=== PATIENT | male | born 1940 | race Caucasian/White ===

== ENCOUNTER 2016-11-22 09:17 | Emergency (ER) | payer MEDICARE ==
[2016-11-22 09:17] VITALS: BMI 27.4
[2016-11-22 09:24] VITALS: RESP 18; TEMP 98.3; O2SAT 96
[2016-11-22] MEDS ORDERED: Tmp-Smz 800 mg-160 mg DS Tab PO STA (09:46)
[2016-11-22] MEDS ORDERED: Naproxen 550 mg Tab PO STA (09:47)
--- NOTE | 2016-11-22 09:49 | C.PDOC ---
History Of Present Illness 76-year-old male, presents to the emergency department with complaints of right foot redness, pain and swelling, for the past three days. Patient states he was bit by something and symptoms started afterward. Patient denies any Hx of diabetes, falls, injuries, fever, or any other associated symptoms. No other complaints at this time. Time Seen by Provider: 11/22/16 09:28 Chief Complaint (Nursing): Abnormal Skin Integrity History Per: Patient History/Exam Limitations: no limitations Onset/Duration Of Symptoms: Days (3) Current Symptoms Are (Timing): Still Present Past Medical History Reviewed: Historical Data, Nursing Documentation, Vital Signs Vital Signs: Last Vital Signs Temp 98.3 F 11/22/16 09:20 Pulse 99 H 11/22/16 10:08 Resp 18 11/22/16 10:08 BP 135/81 11/22/16 10:08 Pulse Ox 96 11/22/16 10:29 - Medical History PMH: HTN Denies: Chronic Kidney Disease Family History: States: No Known Family Hx - Social History Hx Alcohol Use: No Hx Substance Use: No - Immunization History Hx Tetanus Toxoid Vaccination: No Hx Influenza Vaccination: No Hx Pneumococcal Vaccination: No Review Of Systems Except As Marked, All Systems Reviewed And Found Negative. Constitutional: Negative for: Fever Respiratory: Negative for: Shortness of Breath Musculoskeletal: Positive for: Foot Pain (redness and swelling.) Neurological: Negative for: Weakness, Numbness Physical Exam - Physical Exam Appears: Non-toxic, No Acute Distress Skin: Warm, Dry, No Rash Head: Atraumatic, Normacephalic Nose: Normal Oral Mucosa: Moist Lips: Normal Appearing Neck: Normal ROM Respiratory: No Accessory Muscle Use Extremity: No Pedal Edema, Capillary Refill (<2 seconds), Swelling (3cm area of erythema that is tender to palpation, to dorsum of right foot. No fluctuance or induration. ) Pulses: Left Dorsalis Pedis: Normal, Right Dorsalis Pedis: Normal ED Course And Treatment O2 Sat by Pulse Oximetry: 96 (on RA) Pulse Ox Interpretation: Normal Progress Note: Patient treeated with bactrim, Keflex and Naprosyn, he will be discharged home for outpatient f/u with PMD. asked to return for any new or worsening symptoms. Disposition Counseled Patient/Family Regarding: Studies Performed, Diagnosis, Need For Followup, Rx Given - Disposition Referrals: Demetri Pabon Jr., MD [Medical Doctor] - Disposition: HOME/ ROUTINE Disposition Time: 10:00 Condition: STABLE Additional Instructions: FOLLOW UP WITH YOUR DOCTOR IN 1-2 DAYS USE MEDICATIONS DIRECTED RETURN TO EMERGENCY ROOM IF SYMPTOMS WORSEN Prescriptions: Cephalexin [Keflex] 500 mg PO BID #14 capsule Naproxen 375 mg PO BID PRN #20 tablet PRN Reason: pain Sulfamethoxazole/Trimethoprim [Bactrim DS 800 mg-160 mg] 1 tab PO BID #14 tab Instructions: Cellulitis (ED) Forms: [employer] (Occitan) Print Language: MONGOLIAN - POA Present On Arrival: None - Clinical Impression Clinical Impression: Cellulitis of foot - Scribe Statement The provider has reviewed the documentation as recorded by the Scribe (Gurvinder Hudson) All medical record entries made by the Scribe were at my direction and personally dictated by me. I have reviewed the chart and agree that the record accurately reflects my personal performance of the history, physical exam, medical decision making, and the department course for this patient. I have also personally directed, reviewed, and agree with the discharge instructions and disposition.
[2016-11-22] MEDS ORDERED: Naproxen 550 mg Tab PO ONE (09:51)
[2016-11-22] MEDS ORDERED: Tmp-Smz 800 mg-160 mg DS Tab ONE (09:51)
[2016-11-22 10:08] VITALS: BP 135/81; PULSE 99
== END 2016-11-22 10:08 | disposition home or self-care (01) ==
LOC: C.ER 09:17
DX: L03.115 Cellulitis of right lower limb (principal)

== ENCOUNTER 2016-11-27 11:19 | Inpatient (IN) | payer MEDICARE ==
[2016-11-27 11:43] VITALS: BMI 35.5
[2016-11-27 12:41] LABS: BASO % 0.5 % (0.0-2.0); EOS # 0.3 K/uL (0.0-0.7); HEMATOCRIT 44.3 % (35.0-51.0); LYMPH % 27.4 % (20.0-40.0); MEAN CELL VOLUME 86.2 fL (80.0-94.0); MEAN CORPUSCULAR HEMOGLOBIN 29.3 pg (27.0-31.0); MEAN PLATELET VOLUME 7.5 fL (7.2-11.7); MONO # 0.6 K/uL (0.0-0.8); MONO % 8.3 % (0.0-10.0); RED CELL DISTRIBUTION WIDTH 14.7 % (11.5-14.5); WHITE BLOOD COUNT 7.4 K/uL (4.8-10.8)
[2016-11-27 12:50] LABS: CHLORIDE 104 mmol/L (98-107); SODIUM 138 mmol/L (132-148)
[2016-11-27 12:51] LABS: POTASSIUM 4.2 mmol/L (3.6-5.2)
[2016-11-27 12:53] LABS: ALKALINE PHOSPHATASE 82 U/L (38-126); ALT/SGPT 24 U/L (21-72); AST/SGOT 25 U/L (17-59); BILIRUBIN,TOTAL 0.4 mg/dL (0.2-1.3); BLOOD UREA NITROGEN 16 mg/dL (9-20); CARBON DIOXIDE 25 mmol/L (22-30); GFR AFRICAN-AMERICAN > 60; TOTAL PROTEIN 8.3 g/dL (6.3-8.3)
[2016-11-27 12:54] LABS: CALCIUM 9.3 mg/dl (8.6-10.4); GLUCOSE,RANDOM 82 mg/dL (75-110)
[2016-11-27] MEDS ORDERED: Piperacillin/Tazobact 3.375 GM in Sodium Chloride 100 ML IVPB STA (13:05)
--- NOTE | 2016-11-27 13:28 | C.PDOC ---
History Of Present Illness 76 year old male with PMH HTN and valve replacement in 09/24 presents to ED for evaluation of area of swelling and redness to right foot for the last 9 days. Pt believes it maybe secondary to a bug bite. Notes that he has been taking prescribed antibiotics, but swelling has gotten worse. Notes being evaluated by PMD today who requested him to report to ED for further evaluation. Denies PMHx of diabetes or trauma. Denies fever, change in sensation, or any other associated symptoms at this time. Time Seen by Provider: 11/27/16 12:05 Chief Complaint (Nursing): Abnormal Skin Integrity History Per: Patient History/Exam Limitations: no limitations Onset/Duration Of Symptoms: Days Current Symptoms Are (Timing): Still Present Location Of Injury: Right: Foot Quality Of Symptoms: Swollen Additional History Per: Patient Past Medical History Reviewed: Historical Data, Nursing Documentation, Vital Signs Vital Signs: Last Vital Signs Temp 98.1 F 11/27/16 11:43 Pulse 81 11/27/16 11:43 Resp 20 11/27/16 11:43 BP 150/77 11/27/16 11:43 Pulse Ox 98 11/27/16 13:36 - Medical History PMH: HTN Denies: Chronic Kidney Disease Family History: States: Unknown Family Hx - Social History Hx Alcohol Use: No Hx Substance Use: No - Immunization History Hx Tetanus Toxoid Vaccination: No Hx Influenza Vaccination: No Hx Pneumococcal Vaccination: No Review Of Systems Except As Marked, All Systems Reviewed And Found Negative. Constitutional: Negative for: Fever, Chills Cardiovascular: Negative for: Chest Pain Respiratory: Negative for: Shortness of Breath Musculoskeletal: Positive for: Foot Pain (area of swelling in right foot) Neurological: Negative for: Weakness, Numbness Physical Exam - Physical Exam Appears: Non-toxic, No Acute Distress Skin: Warm, Dry, Other (4cm area of erythema with central scabbing, swelling, and fluctuance) Head: Atraumatic, Normacephalic Eye(s): bilateral: Normal Inspection, EOMI Nose: Normal Oral Mucosa: Moist Neck: Supple Chest: Symmetrical Cardiovascular: Rhythm Regular Respiratory: Normal Breath Sounds, No Accessory Muscle Use Extremity: Normal ROM, No Tenderness, No Calf Tenderness, Capillary Refill ( less than 2 seconds), No Deformity Pulses: Left Dorsalis Pedis: Normal, Right Dorsalis Pedis: Normal Neurological/Psych: Oriented x3, Normal Speech, Normal Motor, Normal Sensation ED Course And Treatment - Laboratory Results Result Diagrams: 11/27/16 12:37 11/27/16 12:37 O2 Sat by Pulse Oximetry: 98 (RA) Pulse Ox Interpretation: Normal Progress Note: Blood work ordered and reviewed. Spoke with Dr. Pabon who agrees upon admisison, and requests Dr. Wilcox for surgical consult. Dr. Pabon also requests to start patient on Vancomycin and Zosyn. Disposition - Disposition Disposition Time: 12:00 Condition: STABLE - Clinical Impression Clinical Impression: Cellulitis of foot
[2016-11-27] MEDS ORDERED: Vancomycin 1 gm/NS 200 ml 1 GM/200 ML BAG IVPB SCH (13:30)
[2016-11-27] MEDS ORDERED: Piperacill/Tazo 3.375gm in Dex 3.375 GM/50 ML BAG IVPB ONE (13:45)
[2016-11-27] MEDS ORDERED: Vancomycin 1 GM 1 GM/250 ML BAG IVPB ONE (13:46)
--- NOTE | 2016-11-27 13:48 | CP.PCM.HP ---
History of Present Illness - History of Present Illness History of Present Illness: PGY-1 H&P for Dr. Pabon CC: "water in my leg" This is a 76 year old male with PMHx HTN and severe aortic insufficiency s/p aortic valve replacement who presents complaining of a right leg abscess that began about 10 days ago after he got an insect bite. Patient states that it began after an insect bite. He denies any trauma to the area or abrasion. Patient states that the lesion itself is the only painful portion. Patient denies pain in the rest of the lower extremity. Patient seen in the ER on and prescribed Keflex 500 mg PO BID and Bactrim DS 1 tab PO BID. The abscess was marked by the ER to keep track of the size and erythema. The erythema has since increased past the line. Patient states that the naproxen that was prescribed on his recent ER visit helps to alleviate the pain a bit. Patient denies fever, chills, nausea, vomiting. Patient denies a history of diabetes or frequent falls. PMHx: HTN, severe aortic insufficiency PSHx: Aortic valve replacement surgery 14 months prior Allergies: NKDA Social: Denies tobacco, alcohol, drugs. Home meds: ASA 325 mg PO daily, Amlodipine/Benzapril 5-40 mg PO daily, Toprol XL 50 mg PO daily. Recently dispensed Keflex 500mg PO BID and Bactrim DS 1 tab PO BID, Naproxen 375 mg PO BID prn pain. PMD: Dr. Pabon Present on Admission - Present on Admission Any Indicators Present on Admission: No Review of Systems - Constitutional Constitutional: absent: Chills, Fever - EENT Eyes: absent: Change in Vision Ears: absent: Decreased Hearing Nose/Mouth/Throat: absent: Nasal Congestion - Cardiovascular Cardiovascular: absent: Chest Pain, Dyspnea, Pedal Edema - Respiratory Respiratory: absent: Cough, Dyspnea, Wheezing - Gastrointestinal Gastrointestinal: absent: Abdominal Pain, Constipation, Diarrhea, Nausea, Vomiting - Genitourinary Genitourinary: absent: Dysuria, Hematuria - Integumentary Integumentary: Lesions (right leg). absent: Pruritus - Neurological Neurological: absent: Dizziness, Numbness, Headaches, Tingling, Weakness - Psychiatric Psychiatric: absent: Anxiety, Depression - Endocrine Endocrine: absent: Fatigue, Palpitations Past Patient History - Past Medical History & Family History Past Medical History?: Yes - Past Social History Smoking Status: Former Smoker - CARDIAC Hx Hypertension: Yes - PULMONARY Hx Respiratory Disorders: No - NEUROLOGICAL Hx Neurological Disorder: No - HEENT Hx HEENT Problems: No - RENAL Hx Chronic Kidney Disease: No - ENDOCRINE/METABOLIC Hx Endocrine Disorders: No - HEMATOLOGICAL/ONCOLOGICAL Hx Blood Transfusions: No - INTEGUMENTARY Hx Dermatological Problems: No - MUSCULOSKELETAL/RHEUMATOLOGICAL Hx Falls: No - GASTROINTESTINAL Hx Gastrointestinal Disorders: No - GENITOURINARY/GYNECOLOGICAL Hx Genitourinary Disorders: No - PSYCHIATRIC Hx Substance Use: No - SURGICAL HISTORY Hx Surgeries: Yes Other/Comment: CARDIAC SX - ANESTHESIA Hx Anesthesia: Yes Hx Anesthesia Reactions: No Hx Malignant Hyperthermia: No Meds Allergies/Adverse Reactions: Allergies Allergy/AdvReac Type Severity Reaction Status Date / Time No Known Allergies Allergy Verified 11/27/16 11:38 Physical Exam - Constitutional Appears: No Acute Distress - Head Exam Head Exam: ATRAUMATIC, NORMOCEPHALIC - Eye Exam Eye Exam: EOMI, PERRL - ENT Exam ENT Exam: Mucous Membranes Moist - Respiratory Exam Respiratory Exam: Clear to Auscultation Bilateral, NORMAL BREATHING PATTERN. absent: Rales, Rhonchi, Wheezes - Cardiovascular Exam Cardiovascular Exam: REGULAR RHYTHM, +S1, +S2 - GI/Abdominal Exam GI & Abdominal Exam: Normal Bowel Sounds, Soft. absent: Tenderness - Extremities Exam Extremities exam: Negative for: calf tenderness, pedal edema Additional comments: Erythema and fluctuating lesion measuring 3cmx 4cm with scab covering much of it. Increased tenderness to palpation over the lesion. Areas of erythema extend further past the line marked by the ED on the 11/22/16 visit. - Neurological Exam Neurological exam: Alert, CN II-XII Intact, Oriented x3 - Psychiatric Exam Psychiatric exam: Normal Affect, Normal Mood - Skin Skin Exam: Dry, Warm Results - Vital Signs Recent Vital Signs: Last Vital Signs Temp 98.1 F 11/27/16 11:43 Pulse 81 11/27/16 11:43 Resp 20 11/27/16 11:43 BP 150/77 11/27/16 11:43 Pulse Ox 98 11/27/16 13:36 - Labs Result Diagrams: 11/27/16 12:37 11/27/16 12:37 Labs: Laboratory Results - last 24 hr 11/27/16 11/27/16 12:37 12:37 WBC 7.4 RBC 5.14 Hgb 15.1 Hct 44.3 MCV 86.2 MCH 29.3 MCHC 34.0 RDW 14.7 H Plt Count 259 MPV 7.5 Neut % (Auto) 59.8 Lymph % (Auto) 27.4 [place] % (Auto) 8.3 Eos % (Auto) 4.0 Baso % (Auto) 0.5 Neut # 4.4 Lymph # 2.0 [place] # 0.6 Eos # 0.3 Baso # 0.0 Sodium 138 Potassium 4.2 Chloride 104 Carbon Dioxide 25 Anion Gap 14 BUN 16 Creatinine 1.0 Est GFR ( Amer) > 60 Est GFR (Non-Af Amer) > 60 Random Glucose 82 Calcium 9.3 Total Bilirubin 0.4 AST 25 ALT 24 Alkaline Phosphatase 82 Total Protein 8.3 Albumin 4.2 Globulin 4.1 H Albumin/Globulin Ratio 1.0 Assessment & Plan - Assessment and Plan (Free Text) Plan: Right leg Abscess In ED, given 1 dose of Vancomycin 1 gm and Zosyn 3.375 gm Continued empiric Vancomycin 1 gm IV daily Continued empiric Zosyn 3.[address] Wilcox surgery consult, help appreciated. Bedside I&D performed 11/27/16 with packing placed. To be changed in the AM. F/u blood cultures F/u wound cultures History of Hypertension Amlodipine 5 mg PO daily Benzapril not on formulary--Lisinopril 20 mg PO daily Toprol XL 50 mg PO daily History of Bioprosthetic Aortic Valve Replacement Due to severe aortic insufficiency See BP meds above Home med ASA 325 mg PO daily Monitor Prophylactic Measures Pepcid 20 mg PO BID Lovenox 40 mg SC daily Heart Healthy Diet f/u Hemoglobin A1C Morning labs Case DW Dr. Cm Plascencia PGY-1
--- NOTE | 2016-11-27 15:44 | CP.PCM.CON ---
History of Present Illness - History of Present Illness History of Present Illness: Surgery Consult Note For Dr. Wilcox CC: R. Ankle abscess HPI: Patient presents to the ED with an abscess on the ventral aspect of his R. ankle that has been present for 10 days. The states that he was bit by something but is not completely sure. He states that pain was worse earlier in the week. He describes the pain as throbbing in nature. Denies any palliative or provocative factors. The pain does not radiate anywhere. The pain has been constant since its onset. No associated symptoms PMH: HTN, severe aortic insufficiency PSH: Aortic valve replacement surgery 14 months prior SH: Denies tobacco, alcohol, drugs. Meds: See Mar Allergies: NKDA Initial Post-operative Note - Surgeon's Notes Surgeon: ricardo Resin Remover: janette Anesthesia Administered By: local Pre-Operative Diagnosis: infected abcess Date of OP: 11/27/16 Procedure: i/d Post-Operative Diagnosis: infected abscess Decription of Operation: I/D Operative Findings: blood and pus Specimen Removed: none Estimated Blood Loss: 1 Review of Systems - Review of Systems All systems: reviewed and no additional remarkable complaints except (per HPI) Past Patient History - Past Medical History & Family History Past Medical History?: Yes - Past Social History Smoking Status: Former Smoker - CARDIAC Hx Hypertension: Yes - PULMONARY Hx Respiratory Disorders: No - NEUROLOGICAL Hx Neurological Disorder: No - HEENT Hx HEENT Problems: No - RENAL Hx Chronic Kidney Disease: No - ENDOCRINE/METABOLIC Hx Endocrine Disorders: No - HEMATOLOGICAL/ONCOLOGICAL Hx Blood Transfusions: No - INTEGUMENTARY Hx Dermatological Problems: No - MUSCULOSKELETAL/RHEUMATOLOGICAL Hx Falls: No - GASTROINTESTINAL Hx Gastrointestinal Disorders: No - GENITOURINARY/GYNECOLOGICAL Hx Genitourinary Disorders: No - PSYCHIATRIC Hx Substance Use: No - SURGICAL HISTORY Hx Surgeries: Yes Other/Comment: CARDIAC SX - ANESTHESIA Hx Anesthesia: Yes Hx Anesthesia Reactions: No Hx Malignant Hyperthermia: No Meds Allergies/Adverse Reactions: Allergies Allergy/AdvReac Type Severity Reaction Status Date / Time No Known Allergies Allergy Verified 11/27/16 11:38 - Medications Medications: Current Medications Amlodipine Besylate (Norvasc) 5 mg PO DAILY [facility] Aspirin (Aspirin) 325 mg PO DAILY [facility] Piperacillin Sod/Tazobactam (Sod 3.375 gm/ Sodium Chloride) 100 mls @ 200 mls/ hr IVPB Q6H [facility] Vancomycin HCl 1 gm/ Sodium (Chloride) 250 mls @ 166.7 mls/hr IVPB Q24H [facility] Last Admin: 11/27/16 14:30 Dose: 166.7 mls/hr Lisinopril (Zestril) 20 mg PO DAILY [facility] Metoprolol Succinate (Toprol Xl) 50 mg PO DAILY [facility] Physical Exam - Constitutional Appears: Well, Non-toxic, No Acute Distress - Head Exam Head Exam: ATRAUMATIC, NORMAL INSPECTION, NORMOCEPHALIC - Eye Exam Eye Exam: EOMI Pupil Exam: NORMAL ACCOMODATION - ENT Exam ENT Exam: Mucous Membranes Moist - Neck Exam Neck exam: Positive for: Normal Inspection - Respiratory Exam Respiratory Exam: Clear to Auscultation Bilateral, NORMAL BREATHING PATTERN - Cardiovascular Exam Cardiovascular Exam: REGULAR RHYTHM - GI/Abdominal Exam GI & Abdominal Exam: Normal Bowel Sounds, Soft. absent: Distended, Tenderness - Extremities Exam Extremities exam: Positive for: tenderness (mild tenderness over ventral aspect of R. ankle. area or increased warmth, erythema and fluctance measuring 9uso3sm with scab covering the most ventral portion. Increased tenderness to palpation. No obvious edema) - Neurological Exam Neurological exam: Alert, Oriented x3 - Psychiatric Exam Psychiatric exam: Normal Affect, Normal Mood - Skin Skin Exam: Dry, Intact, Normal Color, Warm Results - Vital Signs Recent Vital Signs: Last Vital Signs Temp 97.8 F 11/27/16 14:41 Pulse 80 11/27/16 14:41 Resp 16 11/27/16 14:41 BP 125/70 11/27/16 14:41 Pulse Ox 98 11/27/16 14:50 - Labs Result Diagrams: 11/27/16 12:37 11/27/16 12:37 Labs: Laboratory Results - last 24 hr 11/27/16 11/27/16 12:37 12:37 WBC 7.4 RBC 5.14 Hgb 15.1 Hct 44.3 MCV 86.2 MCH 29.3 MCHC 34.0 RDW 14.7 H Plt Count 259 MPV 7.5 Neut % (Auto) 59.8 Lymph % (Auto) 27.4 [place] % (Auto) 8.3 Eos % (Auto) 4.0 Baso % (Auto) 0.5 Neut # 4.4 Lymph # 2.0 [place] # 0.6 Eos # 0.3 Baso # 0.0 Sodium 138 Potassium 4.2 Chloride 104 Carbon Dioxide 25 Anion Gap 14 BUN 16 Creatinine 1.0 Est GFR ( Amer) > 60 Est GFR (Non-Af Amer) > 60 Random Glucose 82 Calcium 9.3 Total Bilirubin 0.4 AST 25 ALT 24 Alkaline Phosphatase 82 Total Protein 8.3 Albumin 4.2 Globulin 4.1 H Albumin/Globulin Ratio 1.0 Assessment & Plan - Assessment and Plan (Free Text) Assessment: 76M with R. Ankle Abscess Plan: * I/D @ bedside * Cavity measures 3cm x 3cm x 2cm * F/U wound cultures * packing change tomorrow * Further reccs per Dr. Brenden Pruitt PGY1 - Date & Time Date: 11/27/16 Time: 15:48 - Incision & Drainage Of Abscess Anesthesia: Lidocaine 1% Prep Used: Betadine Procedure: Incised W/Scalpel Blade#: (11), Drained Pus, Irrigated Cavity W/ Saline, Probed To Break Up Loculations, Packed W/Gauze, Cultures Obtained And Sent To Lab
[2016-11-27] MEDS: Piperacill/Tazo 3.375gm in Dex 3.375 GM/50 ML BAG IVPB SCH (21:51)
[2016-11-28] MEDS: Piperacill/Tazo 3.375gm in Dex 3.375 GM/50 ML BAG IVPB SCH ×4 (02:09→19:26)
[2016-11-28 08:12] LABS: BASO % 0.4 % (0.0-2.0); EOS # 0.4 K/uL (0.0-0.7); EOS % 4.7 % (0.0-4.0); LYMPH # 2.4 K/uL (1.0-4.3); LYMPH % 29.4 % (20.0-40.0); MEAN CELL VOLUME 86.1 fL (80.0-94.0); MEAN CORPUSCULAR HEMOGLOBIN 29.1 pg (27.0-31.0); MEAN CORPUSCULAR HGB CONC 33.7 g/dL (33.0-37.0); MEAN PLATELET VOLUME 8.1 fL (7.2-11.7); MONO # 0.7 K/uL (0.0-0.8); MONO % 8.5 % (0.0-10.0); RED CELL DISTRIBUTION WIDTH 14.4 % (11.5-14.5)
[2016-11-28 08:30] LABS: CHLORIDE 102 mmol/L (98-107)
[2016-11-28 08:31] LABS: SODIUM 135 mmol/L (132-148)
[2016-11-28 08:32] LABS: POTASSIUM 4.3 mmol/L (3.6-5.2)
[2016-11-28 08:34] LABS: ALB/GLOB RATIO 1.5 (1.0-2.1); ALKALINE PHOSPHATASE 72 U/L (38-126); AST/SGOT 22 U/L (17-59); BILIRUBIN,TOTAL 0.6 mg/dL (0.2-1.3); BLOOD UREA NITROGEN 16 mg/dL (9-20); CARBON DIOXIDE 22 mmol/L (22-30); GFR AFRICAN-AMERICAN > 60; TOTAL PROTEIN 6.7 g/dL (6.3-8.3)
[2016-11-28 08:35] LABS: ALT/SGPT 22 U/L (21-72); CALCIUM 9.1 mg/dl (8.6-10.4); GLUCOSE,RANDOM 75 mg/dL (75-110)
[2016-11-28] MEDS: Enoxaparin 40 mg Syringe SC SCH (09:56)
[2016-11-28] MEDS: Metoprolol Succinate 50 mg XL Tab PO SCH (10:04)
--- NOTE | 2016-11-28 11:39 | CP.PCM.PN ---
Subjective - Date & Time of Evaluation Date of Evaluation: 11/28/16 Time of Evaluation: 11:36 - Subjective Subjective: Surgery Progress Note for Dr. Wilcox HPI: Patient seen and examined at bedside. Doing well. States there is mild pain at I/D site. No other complaints at this time. Objective - Vital Signs/Intake and Output Vital Signs (last 24 hours): Temp Pulse Resp BP Pulse Ox 97.7 F 61 20 135/84 97 11/28/16 07:36 11/28/16 07:36 11/28/16 07:36 11/28/16 07:36 11/28/16 07:36 Intake and Output: 11/28/16 11/28/16 06:59 18:59 Intake Total 300 Output Total 900 Balance -600 - Medications Medications: Current Medications Amlodipine Besylate (Norvasc) 5 mg PO DAILY [facility] Last Admin: 11/28/16 09:56 Dose: 5 mg Aspirin (Aspirin) 325 mg PO DAILY [facility] Last Admin: 11/28/16 09:56 Dose: 325 mg Enoxaparin Sodium (Lovenox) 40 mg SC DAILY [facility] Last Admin: 11/28/16 09:56 Dose: 40 mg Famotidine (Pepcid) 20 mg PO BID [facility] Last Admin: 11/28/16 09:56 Dose: 20 mg Piperacillin Sod/Tazobactam Sod (Zosyn 3.375 Gm Iv Premix) 3.375 gm in 50 mls @ 100 mls/hr IVPB Q6H [facility] Last Admin: 11/28/16 08:58 Dose: 100 mls/hr Vancomycin HCl 1 gm/ Sodium (Chloride) 250 mls @ 166.7 mls/hr IVPB Q24H [facility] Last Admin: 11/27/16 14:30 Dose: 166.7 mls/hr Lisinopril (Zestril) 20 mg PO DAILY [facility] Last Admin: 11/28/16 09:56 Dose: 20 mg Metoprolol Succinate (Toprol Xl) 50 mg PO DAILY [facility] Last Admin: 11/28/16 10:04 Dose: 50 mg Pneumococcal Polyvalent Vaccine (Pneumovax 23 Vaccine) 0.5 ml IM .ONCE ONE Stop: 11/29/16 10:01 - Labs Labs: 11/28/16 07:55 11/28/16 07:55 - Constitutional Appears: Well, Non-toxic, No Acute Distress - Head Exam Head Exam: ATRAUMATIC, NORMAL INSPECTION, NORMOCEPHALIC - Eye Exam Eye Exam: EOMI Pupil Exam: NORMAL ACCOMODATION - ENT Exam ENT Exam: Mucous Membranes Moist - Respiratory Exam Respiratory Exam: Clear to Ausculation Bilateral, NORMAL BREATHING PATTERN - Cardiovascular Exam Cardiovascular Exam: REGULAR RHYTHM - GI/Abdominal Exam GI & Abdominal Exam: Soft, Normal Bowel Sounds. absent: Distended, Tenderness - Extremities Exam Extremities Exam: Tenderness (minimal tenderness at previous I/D site. Less redness and less tenderness. Packing removed and replaced. Dressing clean, dry and intact). absent: Joint Swelling - Back Exam Back Exam: absent: CVA tenderness (L), CVA tenderness (R) - Neurological Exam Neurological Exam: Alert, Awake, Oriented x3 - Psychiatric Exam Psychiatric exam: Normal Affect, Normal Mood - Skin Skin Exam: Dry, Intact, Normal Color, Warm Assessment and Plan - Assessment and Plan (Free Text) Assessment: 76M W/ R. Ankle abscess Plan: * packing changed today * will remove packing tomorrow * pain control * further management per primary time * further reccs per Dr. Brenden Pruitt PGY1
--- NOTE | 2016-11-28 12:42 | CP.PCM.PN ---
Subjective - Date & Time of Evaluation Date of Evaluation: 11/28/16 Time of Evaluation: 08:00 - Subjective Subjective: Medicine Progress Note- Dr. Pabon's Service: Patient seen and examined at bedside this AM. Patient is POD #1 s/p I&D of abscess of right ankle. Patient denies fevers, chills. Admits to some pain over site. Patient seen this AM by surgery team and wound was repacked. No other complaints today. He is eating well and having normal BMs. Objective - Vital Signs/Intake and Output Vital Signs (last 24 hours): Temp Pulse Resp BP Pulse Ox 97.7 F 61 20 135/84 97 11/28/16 07:36 11/28/16 07:36 11/28/16 07:36 11/28/16 07:36 11/28/16 07:36 Intake and Output: 11/28/16 11/28/16 06:59 18:59 Intake Total 300 Output Total 900 Balance -600 - Medications Medications: Current Medications Amlodipine Besylate (Norvasc) 5 mg PO DAILY [facility] Last Admin: 11/28/16 09:56 Dose: 5 mg Aspirin (Aspirin) 325 mg PO DAILY [facility] Last Admin: 11/28/16 09:56 Dose: 325 mg Enoxaparin Sodium (Lovenox) 40 mg SC DAILY [facility] Last Admin: 11/28/16 09:56 Dose: 40 mg Famotidine (Pepcid) 20 mg PO BID [facility] Last Admin: 11/28/16 09:56 Dose: 20 mg Piperacillin Sod/Tazobactam Sod (Zosyn 3.375 Gm Iv Premix) 3.375 gm in 50 mls @ 100 mls/hr IVPB Q6H [facility] Last Admin: 11/28/16 08:58 Dose: 100 mls/hr Vancomycin HCl 1 gm/ Sodium (Chloride) 250 mls @ 166.7 mls/hr IVPB Q24H [facility] Last Admin: 11/27/16 14:30 Dose: 166.7 mls/hr Lisinopril (Zestril) 20 mg PO DAILY [facility] Last Admin: 11/28/16 09:56 Dose: 20 mg Metoprolol Succinate (Toprol Xl) 50 mg PO DAILY [facility] Last Admin: 11/28/16 10:04 Dose: 50 mg Pneumococcal Polyvalent Vaccine (Pneumovax 23 Vaccine) 0.5 ml IM .ONCE ONE Stop: 11/29/16 10:01 - Labs Labs: 11/28/16 07:55 11/28/16 07:55 - Constitutional Appears: No Acute Distress - Head Exam Head Exam: NORMAL INSPECTION, NORMOCEPHALIC - Eye Exam Eye Exam: EOMI, Normal appearance - ENT Exam ENT Exam: Mucous Membranes Moist - Neck Exam Neck Exam: Full ROM - Respiratory Exam Respiratory Exam: Clear to Ausculation Bilateral, NORMAL BREATHING PATTERN - Cardiovascular Exam Cardiovascular Exam: REGULAR RHYTHM, +S1, +S2 - GI/Abdominal Exam GI & Abdominal Exam: Soft. absent: Distended, Tenderness - Extremities Exam Extremities Exam: Full ROM, Normal Inspection - Back Exam Back Exam: NORMAL INSPECTION - Neurological Exam Neurological Exam: Alert, Awake, Oriented x3 - Psychiatric Exam Psychiatric exam: Normal Affect, Normal Mood - Skin Skin Exam: Normal Color, Warm Assessment and Plan - Assessment and Plan (Free Text) Assessment: Right leg Abscess In ED, given 1 dose of Vancomycin 1 gm and Zosyn 3.375 gm Continued empiric Vancomycin 1 gm IV daily Continued empiric Zosyn 3.[address] Wilcox surgery consult, help appreciated. Bedside I&D performed 11/27/16 with packing replaced this. To be removed in the AM. F/u blood cultures F/u wound cultures History of Hypertension Amlodipine 5 mg PO daily Benzapril not on formulary--Lisinopril 20 mg PO daily Toprol XL 50 mg PO daily History of Bioprosthetic Aortic Valve Replacement Due to severe aortic insufficiency See BP meds above Home med ASA 325 mg PO daily Monitor Prophylactic Measures Pepcid 20 mg PO BID Lovenox 40 mg SC daily PT/OT
[2016-11-29] MEDS: Piperacill/Tazo 3.375gm in Dex 3.375 GM/50 ML BAG IVPB SCH ×3 (01:51→13:20)
[2016-11-29] MEDS ORDERED: DiphenhydrAMINE 50 mg/ml Inj IVP STA (02:44)
[2016-11-29 07:44] VITALS: BP 115/76; PULSE 85; RESP 20; TEMP 97.3; O2SAT 96
[2016-11-29 07:55] LABS: BASO # 0.1 K/uL (0.0-0.2); BASO % 0.8 % (0.0-2.0); EOS # 0.6 K/uL (0.0-0.7); EOS % 6.2 % (0.0-4.0); HEMATOCRIT 44.2 % (35.0-51.0); LYMPH # 2.7 K/uL (1.0-4.3); LYMPH % 27.4 % (20.0-40.0); MEAN CELL VOLUME 85.8 fL (80.0-94.0); MEAN CORPUSCULAR HEMOGLOBIN 28.9 pg (27.0-31.0); MEAN CORPUSCULAR HGB CONC 33.7 g/dL (33.0-37.0); MEAN PLATELET VOLUME 7.5 fL (7.2-11.7); MONO # 0.9 K/uL (0.0-0.8); MONO % 9.1 % (0.0-10.0); RED CELL DISTRIBUTION WIDTH 14.2 % (11.5-14.5); WHITE BLOOD COUNT 9.7 K/uL (4.8-10.8)
[2016-11-29 08:20] LABS: CHLORIDE 101 mmol/L (98-107); SODIUM 135 mmol/L (132-148)
[2016-11-29 08:21] LABS: POTASSIUM 3.9 mmol/L (3.6-5.2)
[2016-11-29 08:23] LABS: ALB/GLOB RATIO 1.5 (1.0-2.1); ALKALINE PHOSPHATASE 73 U/L (38-126); AST/SGOT 22 U/L (17-59); BILIRUBIN,TOTAL 0.4 mg/dL (0.2-1.3); BLOOD UREA NITROGEN 19 mg/dL (9-20); CALCIUM 9.5 mg/dl (8.6-10.4); CARBON DIOXIDE 25 mmol/L (22-30); GFR AFRICAN-AMERICAN > 60; GLUCOSE,RANDOM 81 mg/dL (75-110); TOTAL PROTEIN 6.9 g/dL (6.3-8.3)
[2016-11-29 08:24] LABS: ALT/SGPT 25 U/L (21-72)
--- NOTE | 2016-11-29 09:26 | CP.PCM.PN ---
Subjective - Date & Time of Evaluation Date of Evaluation: 11/29/16 Time of Evaluation: 07:30 - Subjective Subjective: General Surgery Dr. Wilcox Pt seen and examined @bedside. NAEO. no complaints. denies F/C, N/V. tolerating diet. Objective - Vital Signs/Intake and Output Vital Signs (last 24 hours): Temp Pulse Resp BP Pulse Ox 97.3 F L 85 20 115/76 96 11/29/16 07:42 11/29/16 07:42 11/29/16 07:42 11/29/16 07:42 11/29/16 07:42 Intake and Output: 11/29/16 11/29/16 06:59 18:59 Intake Total 750 Output Total 700 Balance 50 - Medications Medications: Current Medications Amlodipine Besylate (Norvasc) 5 mg PO DAILY FOR[facility]LY [facility], [facility]1983 Last Admin: 11/28/16 09:56 Dose: 5 mg Aspirin (Aspirin) 325 mg PO DAILY [facility], [facility] Last Admin: 11/28/16 09:56 Dose: 325 mg Enoxaparin Sodium (Lovenox) 40 mg SC DAILY [facility], [facility]1983 Last Admin: 11/28/16 09:56 Dose: 40 mg Famotidine (Pepcid) 20 mg PO BID FOR[facility], [facility] Last Admin: 11/28/16 17:47 Dose: 20 mg Piperacillin Sod/Tazobactam Sod (Zosyn 3.375 Gm Iv Premix) 3.375 gm in 50 mls @ 100 mls/hr IVPB Q6H FOR[facility], [facility]1983 Last Admin: 11/29/16 01:51 Dose: 100 mls/hr Vancomycin HCl 1 gm/ Sodium (Chloride) 250 mls @ 166.7 mls/hr IVPB Q24H [facility], [facility]1983 Last Admin: 11/28/16 14:08 Dose: 166.7 mls/hr Lisinopril (Zestril) 20 mg PO DAILY [facility] Last Admin: 11/28/16 09:56 Dose: 20 mg Metoprolol Succinate (Toprol Xl) 50 mg PO DAILY [facility] Last Admin: 11/28/16 10:04 Dose: 50 mg Pneumococcal Polyvalent Vaccine (Pneumovax 23 Vaccine) 0.5 ml IM .ONCE ONE Stop: 11/29/16 10:01 - Labs Labs: 11/29/16 07:47 11/29/16 07:47 - Constitutional Appears: Non-toxic, No Acute Distress - Head Exam Head Exam: NORMAL INSPECTION - Eye Exam Eye Exam: Normal appearance - ENT Exam ENT Exam: Mucous Membranes Moist - Respiratory Exam Respiratory Exam: NORMAL BREATHING PATTERN. absent: Accessory Muscle Use, Respiratory Distress - GI/Abdominal Exam GI & Abdominal Exam: Soft. absent: Distended - Extremities Exam Additional comments: R ankle abscess. mild erythema, no induration/fluctuance. no drainage expressed - Neurological Exam Neurological Exam: Alert, Awake, Oriented x3 - Psychiatric Exam Psychiatric exam: Normal Affect, Normal Mood - Skin Skin Exam: Dry, Normal Color, Warm Assessment and Plan - Assessment and Plan (Free Text) Assessment: 76 y/o M w/ R ankle abscess - packing removed - daily dressing changes - cont pain management - cont Abx per primary - cont medical management Pt discussed w/ Dr. Brenden Aguilera DO PGY2
[2016-11-29] MEDS ORDERED: Pneumococcal 23-Valent Vaccine IM ONE (10:00)
[2016-11-29] MEDS: Enoxaparin 40 mg Syringe SC SCH (10:32)
[2016-11-29] MEDS: Metoprolol Succinate 50 mg XL Tab PO SCH (10:35)
--- NOTE | 2016-11-29 14:07 | CP.PCM.DIS ---
Provider - Provider Date of Admission: 11/27/16 13:06 Attending physician: Demetri Pabon Jr, MD Primary care physician: Dr. Pabon Consults: Rk (surgery) Time Spent in preparation of Discharge (in minutes): 45 Diagnosis - Discharge Diagnosis (1) Cellulitis of foot Status: Acute Hospital Course - Lab Results Lab Results: Micro Results 11/27/16 09:00 Ankle - Right Gram Stain - Final 11/27/16 09:00 Ankle - Right Wound Culture - Preliminary NO GROWTH AFTER 24 HOURS 11/27/16 12:30 Blood Blood Culture - Preliminary NO GROWTH AFTER 24 HOURS 11/27/16 Unknown Blood Blood Culture - Preliminary NO GROWTH AFTER 24 HOURS Most Recent Lab Values WBC 9.7 K/uL (4.8-10.8) 11/29/16 07:47 RBC 5.15 Mil/uL (4.40-5.90) 11/29/16 07:47 Hgb 14.9 g/dL (12.0-18.0) 11/29/16 07:47 Hct 44.2 % (35.0-51.0) 11/29/16 07:47 MCV 85.8 fL (80.0-94.0) 11/29/16 07:47 MCH 28.9 pg (27.0-31.0) 11/29/16 07:47 MCHC 33.7 g/dL (33.0-37.0) 11/29/16 07:47 RDW 14.2 % (11.5-14.5) 11/29/16 07:47 Plt Count 258 K/uL (130-400) 11/29/16 07:47 MPV 7.5 fL (7.2-11.7) 11/29/16 07:47 Neut % (Auto) 56.5 % (50.0-75.0) 11/29/16 07:47 Lymph % (Auto) 27.4 % (20.0-40.0) 11/29/16 07:47 [place] % (Auto) 9.1 % (0.0-10.0) 11/29/16 07:47 Eos % (Auto) 6.2 % (0.0-4.0) H 11/29/16 07:47 Baso % (Auto) 0.8 % (0.0-2.0) 11/29/16 07:47 Neut # 5.5 K/uL (1.8-7.0) 11/29/16 07:47 Lymph # 2.7 K/uL (1.0-4.3) 11/29/16 07:47 [place] # 0.9 K/uL (0.0-0.8) H 11/29/16 07:47 Eos # 0.6 K/uL (0.0-0.7) 11/29/16 07:47 Baso # 0.1 K/uL (0.0-0.2) 11/29/16 07:47 Sodium 135 mmol/L (132-148) 11/29/16 07:47 Potassium 3.9 mmol/L (3.6-5.2) 11/29/16 07:47 Chloride 101 mmol/L (98-107) 11/29/16 07:47 Carbon Dioxide 25 mmol/L (22-30) 11/29/16 07:47 Anion Gap 13 (10-20) 11/29/16 07:47 BUN 19 mg/dL (9-20) 11/29/16 07:47 Creatinine 1.1 mg/dL (0.8-1.5) 11/29/16 07:47 Est GFR ( Amer) > 60 11/29/16 07:47 Est GFR (Non-Af Amer) > 60 11/29/16 07:47 Random Glucose 81 mg/dL (75-110) 11/29/16 07:47 Calcium 9.5 mg/dl (8.6-10.4) 11/29/16 07:47 Total Bilirubin 0.4 mg/dL (0.2-1.3) 11/29/16 07:47 AST 22 U/L (17-59) 11/29/16 07:47 ALT 25 U/L (21-72) 11/29/16 07:47 Alkaline Phosphatase 73 U/L (38-126) 11/29/16 07:47 Total Protein 6.9 g/dL (6.3-8.3) 11/29/16 07:47 Albumin 4.1 g/dL (3.5-5.0) 11/29/16 07:47 Globulin 2.8 gm/dL (2.2-3.9) 11/29/16 07:47 Albumin/Globulin Ratio 1.5 (1.0-2.1) 11/29/16 07:47 - Hospital Course Hospital Course: CC: "water in my leg" This is a 76 year old male with PMHx HTN and severe aortic insufficiency s/p aortic valve replacement who presents complaining of a right leg abscess that began about 10 days ago after he got an insect bite. Patient states that it began after an insect bite. He denies any trauma to the area or abrasion. Patient states that the lesion itself is the only painful portion. Patient denies pain in the rest of the lower extremity. Patient seen in the ER on and prescribed Keflex 500 mg PO BID and Bactrim DS 1 tab PO BID. The abscess was marked by the ER to keep track of the size and erythema. The erythema has since increased past the line. Patient states that the naproxen that was prescribed on his recent ER visit helps to alleviate the pain a bit. Patient denies fever, chills, nausea, vomiting. Patient denies a history of diabetes or frequent falls. In ED, given 1 dose of Vancomycin 1 gm and Zosyn 3.375 gm Pt continued on empiric Vancomycin 1 gm IV daily and empiric Zosyn 3.[address] Wilcox surgery consulted. Bedside I&D performed 11/27/16 with packing replaced changed and then removed this AM. blood cultures and wound cultures neg X24 hours. Pt discharged on Santyl topical and Bactrim DS X7 days. Discharge Exam - Head Exam Head Exam: NORMAL INSPECTION - Eye Exam Eye Exam: EOMI, Normal appearance - ENT Exam ENT Exam: Mucous Membranes Moist - Neck Exam Neck exam: Full Rom - Respiratory Exam Respiratory Exam: Clear to PA & Lateral - Cardiovascular Exam Cardiovascular Exam: REGULAR RHYTHM, +S1, +S2 - GI/Abdominal Exam GI & Abdominal Exam: Normal Bowel Sounds - Extremities Exam Extremities exam: full ROM Additional comments: +wound dressing: c/d/i - Back Exam Back exam: FULL ROM - Neurological Exam Neurological exam: Alert, Oriented x3 - Psychiatric Exam Psychiatric exam: Normal Affect, Normal Mood - Skin Skin Exam: Dry, Normal Color, Warm Discharge Plan - Discharge Medications Prescriptions: Collagenase [Santyl] 30 gm EXT BID #1 tube Sulfamethoxazole/Trimethoprim [Bactrim DS Tab] 1 tab PO BID #20 tab - Follow Up Plan Condition: STABLE Disposition: HOME/ ROUTINE Instructions: Cellulitis (DC), Cellulitis (GEN), Hypertension (DC), Hypertension (GEN) Additional Instructions: Discharge to home. Please take the following new medications as prescribed: Santyl topical over area (nickel thick) twice a day. Bactrim DS 1 tab twice a day for 10 days. Please follow up with Dr. Pabon within 1 week of discharge. Return to the emergency room if symptoms return. Dado de klaus a casa. Por favor, tome los siguientes medicamentos nuevos segn lo recetado: Santyl tpico sobre el [place] (hillary capa de el grueso de hillary moneda) dos veces al d a. Bactrim DS 1 pestaa dos veces al da nissa 10 munson. Por favor, patricia un seguimiento con el Dr. Pabon dentro de 1 semana del klaus. Regrese a la baltazar de emergencias si los sntomas regresan. Referrals: Demetri Pabon Jr., MD [Medical Doctor] - Memo Wilcox Jr., MD [Staff Provider] -
[2016-11-30] MEDS ORDERED: Influenza Vaccine 60 mcg/0.5 mL SYR (4YR UP) IM ONE (10:00)
== END 2016-11-29 15:29 | disposition home or self-care (01) | DRG 603 ==
LOC: C.ER 11:19 → OBSVTOIN 13:06 → C.3T 13:06
PROVIDERS: ADMIT Internal Medicine; ATTEND Internal Medicine
PROC: 0H9MXZZ Drainage of Right Foot Skin, External Approach (ICD-10-PCS; principal; 2016-11-27)
DX: L03.115 Cellulitis of right lower limb (principal); I10 Essential (primary) hypertension; Z95.2 Presence of prosthetic heart valve; Z87.891 Personal history of nicotine dependence

== ENCOUNTER 2018-02-11 11:10 | Emergency (ER) | payer MEDICARE ==
[2018-02-11 11:11] VITALS: BMI 35.5
--- NOTE | 2018-02-11 13:04 | C.PDOC ---
History Of Present Illness 77 y/o male brought in by family for evaluation of flu-like symptoms for 5 days. Associated with intermittent fever, cough, and bodyaches. Patient has also been complaining of eye crusting and discharge for 6 days. Additionally patient complains of abdominal pain. He denies any back pain, chest pain, vomiting, diarrhea, dysuria, hematuria, or bloody or dark stools. Patient reports last BM was yesterday, and prior to that he felt constipated. Time Seen by Provider: 02/11/18 12:44 Chief Complaint (Nursing): Flu-like Symptoms History Per: Patient History/Exam Limitations: no limitations Onset/Duration Of Symptoms: Days Current Symptoms Are (Timing): Still Present Sick Contacts (Context): None Additional History Per: Family Past Medical History Reviewed: Historical Data, Nursing Documentation, Vital Signs Vital Signs: Last Vital Signs Temp 99.8 F H 02/11/18 11:33 Pulse 111 H 02/11/18 11:33 Resp 22 02/11/18 11:33 BP 105/71 02/11/18 11:33 Pulse Ox 96 02/11/18 11:33 - Medical History PMH: HTN Denies: Chronic Kidney Disease - [facility] Procedures DRAINAGE OF RIGHT FOOT SKIN, EXTERNAL APPROACH (11/27/16) Family History: States: Unknown Family Hx - Social History Hx Alcohol Use: No Hx Substance Use: No - Immunization History Hx Tetanus Toxoid Vaccination: No Hx Influenza Vaccination: No Hx Pneumococcal Vaccination: No Review Of Systems Constitutional: Positive for: Fever. Negative for: Sweats Eyes: Positive for: Pain, Other (bilateral eye discharge/crusting). Negative for: Vision Change Cardiovascular: Negative for: Chest Pain Respiratory: Negative for: Shortness of Breath Gastrointestinal: Positive for: Abdominal Pain, Constipation. Negative for: Vomiting, Diarrhea, Melena, Hematochezia Genitourinary: Negative for: Dysuria, Hematuria Musculoskeletal: Negative for: Back Pain Skin: Negative for: Rash Neurological: Negative for: Weakness, Numbness, Dizziness Physical Exam - Physical Exam Appears: Non-toxic, No Acute Distress Skin: Warm, Dry Head: Normacephalic Eye(s): bilateral: PERRL, EOMI, Other (Bilateral yellow eye discharge + conjunctivitis, no vision change, no indication of endophthalmitis. No orbital swelling or indication of orbital cellulitis. No blepharitis or ocular swelling. No abrasion noted. normal vision b/l) Ear(s): Bilateral: Normal Nose: Normal Oral Mucosa: Moist Tongue: Normal Appearing Lips: Normal Appearing Teeth: Normal Dentition Throat: Normal, No Erythema Neck: Trachea Midline, Supple, Other (No meningeal signs- negative kernig's and brudzinskis) Chest: Symmetrical Cardiovascular: Rhythm Regular, No Friction Rub Respiratory: No Rales, No Rhonchi, No Wheezing Gastrointestinal/Abdominal: Soft, Tenderness (mild diffuse tenderness), No Guarding, No Rebound Back: Normal Inspection, No CVA Tenderness, No Vertebral Tenderness Extremity: Bilateral: Atraumatic, Normal Color And Temperature Pulses: Left Dorsalis Pedis: Normal, Right Dorsalis Pedis: Normal Neurological/Psych: Oriented x3, Normal Speech, Normal Cognition, Normal Cranial Nerves Extremity: Right: No Drift, Left: No Drift ED Course And Treatment - Laboratory Results Result Diagrams: 02/11/18 13:35 02/11/18 13:35 O2 Sat by Pulse Oximetry: 96 (RA) Pulse Ox Interpretation: Normal Medical Decision Making Medical Decision Makin77 y/o M p/w flu-like symptoms, abdominal pain, and bilateral yellow discharge and conjunctivitis. No periorbital swelling. No indication of orbital cellulitis. No eye trauma or fall. FLu like symptoms, without leg swelling. No meningeal signs. Likely VIRAL URI w/ associated bacterial conjunctivitis. B/L Vision at baseline per pt. no indication of endopthalmitis. Plan: --VBG --Blood work --Chest x-ray --Flu swab --IVF hydration --Bleph-10 eye drops OU EK bpm, NSR, R BBB, no STEMI Labs reviewed, negative flu. CT resulted: FINDINGS: LOWER THORAX: Unremarkable. LIVER: Fatty liver. GALLBLADDER AND BILE DUCTS: Gallstone. PANCREAS: Unremarkable. No gross lesion or ductal dilatation. SPLEEN: Unremarkable. ADRENALS: Unremarkable. No mass. KIDNEYS AND URETERS: 13 millimeter right upper pole renal cyst. No hydronephrosis. No solid mass. VASCULATURE: Unremarkable. No aortic aneurysm. No aortic atherosclerotic calcification or mural plaque present. BOWEL: Colonic diverticulosis. No obstruction. No gross mural thickening. APPENDIX: Normal appendix. PERITONEUM: Unremarkable. No free fluid. No free air. LYMPH NODES: Unremarkable. No enlarged lymph nodes. BLADDER: Unremarkable. REPRODUCTIVE: Prostate enlargement. BONES: No acute fracture. OTHER FINDINGS: None. IMPRESSION: No acute pathology. Colonic diverticulosis. Fatty liver. Prostate enlargement; correlate with PSA levels. Small right upper pole renal cyst. Cholelithiasis. 1626 mild leukocytosis but otherwise labs largely unremarkable. no RUQ pain on exam. Xray, CT unremarakble pt in NAD likely flu and bacterial conjuntivits, will d/c home with abx, return indications and f/u. pt agreeable w/ plan Disposition - Disposition Referrals: [facility] [Outside] [facility] [Outside] [facility] [Outside] Sreedhar Del Rosario MD [Staff Provider] - Disposition: HOME/ ROUTINE Disposition Time: 16:26 Condition: GOOD Additional Instructions: PRUDENCE TOMLIN, thank you for letting us take care of you today. Your provider was Shakeel Haynes and you were treated for BODYACHES,REDNESS TO EYES. The emergency medical care you received today was directed at your acute symptoms. If you were prescribed any medication, please fill it and take as directed. It may take several days for your symptoms to resolve. Return to the Emergency Department if your symptoms worsen, do not improve, or if you have any other problems. Please contact your doctor or call one of the physicians/clinics you have been referred to that are listed on the Patient Visit Information form that is included in your discharge packet. Bring any paperwork you were given at discharge with you along with any medications you are taking to your follow up visit. Our treatment cannot replace ongoing medical care by a primary care provider outside of the emergency department. Thank you for allowing the [facility] team to be part of your care today. If you had an X-Ray or CT scan: A Radiologist will review the ED reading if any change in treatment is needed we will contact you. If you had a blood, urine, or wound culture: It will take several days for the results, if any change in treatment is needed we will contact you. If you had an STI test: It will take 48 hours for the results. Please call after 1 week if you have not heard back. Prescriptions: Oseltamivir Phosphate [Tamiflu] 75 mg PO BID 5 Days #10 capsule RX: Sulfacetamide Sodium [Bleph 10% Eye Drops] 1 - 2 drop OU Q6H 7 Days #1 bottle Instructions: Flu, Conjunctivitis ([place]) Forms: [facility] (Stateless) - Clinical Impression Clinical Impression: Influenza-like illness, Influenza-like illness, Acute bacterial conjunctivitis of both eyes - Scribe Statement The provider has reviewed the documentation as recorded by the Lambertoibimani Carlson Provider Attestation: All medical record entries made by the Ksenia were at my direction and personally dictated by me. I have reviewed the chart and agree that the record accurately reflects my personal performance of the history, physical exam, medical decision making, and the department course for this patient. I have also personally directed, reviewed, and agree with the discharge instructions and disposition.
[2018-02-11] MEDS ORDERED: Sulfacetamide Sodium 10% Ophth Soln OU STA (13:14)
[2018-02-11] MEDS ORDERED: Sodium Chloride 0.9% 1,000 ML ONE (13:15)
[2018-02-11] MEDS ORDERED: Sodium Chloride 0.9% 1,000 ML IV SCH (13:15)
--- NOTE | 2018-02-11 13:29 | RAD ---
Date of service: 02/11/2018 HISTORY: Cough COMPARISON: 08/22/2015. TECHNIQUE: Chest PA and lateral FINDINGS: LINES AND TUBES: None. LUNG AND PLEURA: There are low lung volumes. No focal consolidation. There is mild pulmonary venous congestion. No pleural effusion or pneumothorax. HEART AND MEDIASTINUM: There is moderate cardiomegaly. Status post CABG. There are aortic atherosclerotic calcifications present. The hilar and mediastinal contours are within normal limits. SKELETAL STRUCTURES: The bony structures are within normal limits for the patient's age. VISUALIZED UPPER ABDOMEN: Normal. OTHER FINDINGS: None. IMPRESSION: No acute findings. Moderate cardiomegaly and mild pulmonary venous congestion.
[2018-02-11 13:34] VITALS: RESP 18
[2018-02-11 13:35] LABS: VENOUS BLOOD GAS PCO2 53 mmHg (40-60); VENOUS BLOOD GAS PO2 15 mm/Hg (30-55); VENOUS BLOOD PH 7.33 (7.32-7.43)
[2018-02-11 13:39] LABS: BASO % 0.3 % (0.0-2.0); EOS # 0.7 K/uL (0.0-0.7); EOS % 5.5 % (0.0-4.0); HEMOGLOBIN 15.1 g/dL (12.0-18.0); LYMPH # 1.5 K/uL (1.0-4.3); LYMPH % 11.5 % (20.0-40.0); MEAN CELL VOLUME 87.7 fL (80.0-94.0); MEAN CORPUSCULAR HEMOGLOBIN 29.4 pg (27.0-31.0); MEAN CORPUSCULAR HGB CONC 33.6 g/dL (33.0-37.0); MEAN PLATELET VOLUME 8.4 fL (7.2-11.7); MONO # 1.7 K/uL (0.0-0.8); MONO % 13.7 % (0.0-10.0); NEUT # 8.7 K/uL (1.8-7.0); NRBC % 0.3 % (0.0-2.0); RBC 5.13 Mil/uL (4.40-5.90); WHITE BLOOD COUNT 12.6 K/uL (4.8-10.8)
[2018-02-11 13:49] VITALS: O2SAT 96
[2018-02-11 13:58] LABS: ALB/GLOB RATIO 1.2 (1.0-2.1); ALBUMIN 4.3 g/dL (3.5-5.0); ALT/SGPT 19 U/L (21-72); AST/SGOT 42 U/L (17-59); BLOOD UREA NITROGEN 18 mg/dL (9-20); CALCIUM 8.8 mg/dl (8.6-10.4); GFR NON-AFRICAN AMERICAN > 60
[2018-02-11] MEDS ORDERED: Iodixanol 320 MG/ML 100 ML BOTTLE IV ONE ×2 (14:47→14:59)
--- NOTE | 2018-02-11 16:04 | CT ---
Date of service: 02/11/2018 PROCEDURE: CT Abdomen and Pelvis with contrast HISTORY: abd pain COMPARISON: None. TECHNIQUE: Contrast dose: Radiation dose: Total exam DLP = 1236.27 mGy-cm. This CT exam was performed using one or more of the following dose reduction techniques: Automated exposure control, adjustment of the mA and/or kV according to patient size, and/or use of iterative reconstruction technique. FINDINGS: LOWER THORAX: Unremarkable. LIVER: Fatty liver. GALLBLADDER AND BILE DUCTS: Gallstone. PANCREAS: Unremarkable. No gross lesion or ductal dilatation. SPLEEN: Unremarkable. ADRENALS: Unremarkable. No mass. KIDNEYS AND URETERS: 13 millimeter right upper pole renal cyst. No hydronephrosis. No solid mass. VASCULATURE: Unremarkable. No aortic aneurysm. No aortic atherosclerotic calcification or mural plaque present. BOWEL: Colonic diverticulosis. No obstruction. No gross mural thickening. APPENDIX: Normal appendix. PERITONEUM: Unremarkable. No free fluid. No free air. LYMPH NODES: Unremarkable. No enlarged lymph nodes. BLADDER: Unremarkable. REPRODUCTIVE: Prostate enlargement. BONES: No acute fracture. OTHER FINDINGS: None. IMPRESSION: No acute pathology. Colonic diverticulosis. Fatty liver. Prostate enlargement; correlate with PSA levels. Small right upper pole renal cyst. Cholelithiasis.
[2018-02-11 17:05] VITALS: BP 137/85; PULSE 74; TEMP 98.9
--- NOTE | 2018-02-14 13:06 | CARD ---
APPROVED REPORT Date of service: 02/11/2018 EKG Measurement Heart [id number] <Conclusion> Normal sinus rhythm Left axis deviation Right bundle branch block Abnormal ECG
== END 2018-02-11 17:03 | disposition home or self-care (01) ==
LOC: C.ER 11:10
DX: J11.1 Influenza due to unidentified influenza virus with other respiratory manifestations (principal); H10.33 Unspecified acute conjunctivitis, bilateral; I10 Essential (primary) hypertension
CPT/HCPCS: 71046; 74177; 80053; 82803; 83735; 84484; 85025; 87040; 87804; 93005; 99285; J7030; Q9967